=== PATIENT | female | born 1980 | race Two or more races ===

== ENCOUNTER 2021-04-15 19:40 | Emergency (ER) | payer OTHER ==
[~2021-04-15] VITALS: Ht 154.9 cm; Wt 81.6 kg
[2021-04-15 19:41] VITALS: BP 141/87
== END 2021-04-15 20:00 | disposition left against medical advice (07) ==
LOC: ER 19:47
DX: U07.1 COVID-19 (principal); R50.9 Fever, unspecified; J02.9 Acute pharyngitis, unspecified; Z53.21 Procedure and treatment not carried out due to patient leaving prior to being seen by health care provider
CPT/HCPCS: 36415; 71045; 87426